=== PATIENT | male | born 1970 | race Caucasian/White ===

== ENCOUNTER 2016-09-14 13:12 | Outpatient (CLI) | payer MEDICARE, OTHER | END 2016-09-14 13:13 | disposition home or self-care (01) | LOC: SC 13:12 | PROVIDERS: ATTEND Nurse Practitioner Family | DX: G47.33 Obstructive sleep apnea (adult) (pediatric) (principal) | CPT/HCPCS: 99213; G0463; 99212 ==

== ENCOUNTER 2017-10-31 12:46 | Day surgery (SDC) | payer OTHER ==
[2017-10-31] MEDS ORDERED: LACTATED RINGERS 1,000 ML IV ONE (13:20)
--- NOTE | 2017-10-31 13:35 | ANESTHESIA ---
Pre-Anesthesia VS, & Labs - Diagnosis Anemia, bloody diarrhea - Procedure Esophagogastrodenoscopy Vital Signs: Temp Pulse Resp BP Pulse Ox 36.7 C 65 16 136/97 H 97 10/31/17 12:55 10/31/17 12:55 10/31/17 12:55 10/31/17 12:55 10/31/17 12:55 Vital Signs Temp 36.8 C 10/31/17 17:00 Pulse 70 10/31/17 17:00 Resp 16 10/31/17 17:00 BP 119/82 H 10/31/17 17:00 Pulse Ox 99 10/31/17 17:00 Height 5 ft 10 in Weight (kg) 112.9 kg Body Mass Index 29.9 - NPO >8 hours - Lab Results Lab results reviewed: Yes Home Medications and Allergies Home Medications: Ambulatory Orders Medication Instructions Recorded Confirmed RX: Carvedilol 12.5 mg PO BID 03/08/13 10/03/17 Cetirizine [ZyrTEC] 10 mg PO DAILY PRN 03/12/13 10/03/17 Calcium Crb,Cit/D3/Min34/Shana 2 tab PO BID 10/16/13 10/03/17 [Citracal + Bone Density Tablet] RX: Multivitamin [Daily Multiple 1 tab PO DAILY 10/16/13 10/03/17 Vitamin] Magnesium Oxide [Magnesium] 400 mg ORAL DAILY 11/13/13 10/03/17 Loperamide [Imodium] 2 mg PO QID PRN 02/22/14 10/03/17 Pravastatin [Pravachol] 20 mg PO DAILY 05/31/16 10/03/17 Allergies/Adverse Reactions: Allergies Allergy/AdvReac Type Severity Reaction Status Date / Time No Known Drug Allergies Allergy Verified 02/21/14 14:33 Anes History & Medical History - Anesthetic History Anesthesia Complications: reports: No previous complications Family history of Anesthesia Complications: Denies Family history of Malignant Hyperthermia: Denies - Medical History Cardiovascular: reports: Hypertension Pulmonary: reports: Sleep apnea, CPAP use Gastrointestinal: reports: Chronic diarrhea, Hemorrhoids Urinary: reports: None Neuro: reports: None Musculoskeletal: reports: None Endocrine/Autoimmune: reports: None Blood Disorders: reports: Anemia Skin: reports: None Smoking Status: Never smoker Psychosocial: reports: No issues indicated - Surgical History General: Colonoscopy Orthopedic: Arthroscopic surgery Exam General: Alert Dental: WNL Mouth Opening: Greater than 4 Fingerbreadths Neck Mobility: Normal Mallampati classification: II Thyromental Distance: greater than 6 cm Respiratory: Lungs clear Cardiovascular: Regular rate Neurological: Normal speech Mental/Cognitive Status: Alert/Oriented X3 Cognitive Status: Within normal limits Plan Anesthesia Type: MAC Consent for Procedure(s) Verified and Reviewed: Yes Code Status: Attempt Resuscitation ASA classification: 2-Mild systemic disease Is this case an emergency?: No
[2017-10-31] MEDS ORDERED: LIDO GARGLE 30 ML BOTTLE ONE (13:51)
[2017-10-31] MEDS ORDERED: fentaNYL 250 MCG/5 ML VIAL IVP ONE (15:21)
[2017-10-31] MEDS ORDERED: MIDAZOLAM 2 MG/2 ML VIAL IVP ONE (15:21)
[2017-10-31] MEDS ORDERED: LIDO GARGLE 30 ML BOTTLE TOP ONE (15:25)
[2017-10-31 18:17] VITALS: BP 119/82
== END 2017-10-31 12:47 | disposition home or self-care (01) ==
LOC: SDS 12:46
PROVIDERS: ATTEND Surgery
PROC: 0DBP8ZX Excision of Rectum, Via Natural or Artificial Opening Endoscopic, Diagnostic (ICD-10-PCS; 2017-10-31)
PROC: 0DB98ZX Excision of Duodenum, Via Natural or Artificial Opening Endoscopic, Diagnostic (ICD-10-PCS; 2017-10-31)
PROC: 0DB78ZX Excision of Stomach, Pylorus, Via Natural or Artificial Opening Endoscopic, Diagnostic (ICD-10-PCS; 2017-10-31)
PROC: 0DBH8ZX Excision of Cecum, Via Natural or Artificial Opening Endoscopic, Diagnostic (ICD-10-PCS; principal; 2017-10-31 13:45)
PROC: 0DBN8ZX Excision of Sigmoid Colon, Via Natural or Artificial Opening Endoscopic, Diagnostic (ICD-10-PCS; 2017-10-31 13:45)
DX: D64.9 Anemia, unspecified (principal); R19.7 Diarrhea, unspecified; K62.5 Hemorrhage of anus and rectum; Z94.84 Stem cells transplant status; G47.33 Obstructive sleep apnea (adult) (pediatric); C85.90 Non-Hodgkin lymphoma, unspecified, unspecified site; Z87.891 Personal history of nicotine dependence; K21.9 Gastro-esophageal reflux disease without esophagitis; I11.0 Hypertensive heart disease with heart failure; I50.9 Heart failure, unspecified
CPT/HCPCS: 43239; 45380; 87081; A9270; J3010; J7120

== ENCOUNTER 2018-09-22 12:39 | Day surgery (SDC) | payer OTHER ==
[~2018-09-22 12:39] MED LIST: CEFAZOLIN SODIUM IN 0.9 % NACL 2 GM/100 ML BAG IV ONE
[2018-09-22] MEDS ORDERED: fentaNYL 100 MCG/2 ML VIAL IVP ONE (12:40)
[2018-09-22] MEDS ORDERED: PROPOFOL 200 MG/20 ML VIAL IVP ONE (12:40)
[2018-09-22] MEDS ORDERED: DEXAMETHASONE 4 MG/ML VIAL IVP ONE (12:40)
[2018-09-22] MEDS ORDERED: MIDAZOLAM 2 MG/2 ML VIAL IVP ONE (12:40)
[2018-09-22] MEDS ORDERED: LIDOCAINE-MPF 2% 5 ML VIAL IM ONE (12:40)
--- NOTE | 2018-09-22 13:08 | ANESTHESIA ---
Pre-Anesthesia VS, & Labs - Diagnosis hemachromatosis - Procedure portacath placement Vital Signs: Temp Pulse Resp BP Pulse Ox 36.4 C L 72 17 134/93 H 97 09/22/18 12:52 09/22/18 12:52 09/22/18 12:52 09/22/18 12:52 09/22/18 12:52 Height 5 ft 10.5 in Weight (kg) 119.1 kg Body Mass Index 36.7 - NPO >8 hours Home Medications and Allergies Cetirizine [ZyrTEC] 10 mg PO DAILY PRN 03/12/13 Calcium Crb,Cit/D3/Min34/Shana [Citracal + Bone Density Tablet] 2 tab PO BID 10/16/13 Multivitamin [Daily Multiple Vitamin] 1 tab PO DAILY 10/16/13 Loperamide [Imodium] 2 mg PO QID PRN 02/22/14 Pravastatin [Pravachol] 20 mg PO DAILY 05/31/16 Allergies/Adverse Reactions: Allergies Allergy/AdvReac Type Severity Reaction Status Date / Time No Known Drug Allergies Allergy Verified 07/24/18 09:04 Anes History & Medical History - Anesthetic History Anesthesia Complications: reports: No previous complications Family history of Anesthesia Complications: Denies Family history of Malignant Hyperthermia: Denies - Medical History Cardiovascular: reports: Hypertension Pulmonary: reports: Sleep apnea, CPAP use Gastrointestinal: reports: Chronic diarrhea, Hemorrhoids Urinary: reports: None Musculoskeletal: reports: None Endocrine/Autoimmune: reports: None Blood Disorders: reports: Anemia Skin: reports: None Smoking Status: Never smoker - Surgical History General: Colonoscopy Orthopedic: Arthroscopic surgery Exam General: Alert, Oriented x3, Cooperative, No acute distress Dental: Other (caps) Mouth Openin Fingerbreadth Neck Mobility: Normal Mallampati classification: III Thyromental Distance: greater than 6 cm Respiratory: Lungs clear, Normal breath sounds, No respiratory distress, No accessory muscle use Cardiovascular: Regular rate, Normal S1, Normal S2, No murmurs Plan Anesthesia Type: General Consent for Procedure(s) Verified and Reviewed: Yes Code Status: Attempt Resuscitation ASA classification: 2-Mild systemic disease Is this case an emergency?: No
[2018-09-22] MEDS ORDERED: LACTATED RINGERS 1,000 ML IV ONE (13:11)
[2018-09-22] MEDS ORDERED: BUPIVACAINE 0.5% PF 10 ML VIAL ONE (14:00)
[2018-09-22] MEDS ORDERED: BUPIVACAINE 0.5% PF 30 ML VIAL SUBQ ONE ×2 (14:33)
--- NOTE | 2018-09-22 15:14 | XRAY Report ---
Reason: PORTACATH PLACEMENT Procedure Date: 09/22/2018 Accession Number: [id number] / [id number] Procedure: XR - Chest 1 View X-Ray CPT Code: 85551 FULL RESULT: EXAM: CHEST RADIOGRAPHY EXAM DATE: 09/22/2018 03:05 PM. CLINICAL HISTORY: Port-A-Cath placement. COMPARISON: CHEST 2 VIEW PA/LAT 05/30/2014 3:15 PM. TECHNIQUE: 1 view. FINDINGS: The radiograph is markedly limited by AP supine technique with apical lordotic angulation with exclusion of a portion of the right hemithorax and underpenetration. Within these limitations: Lungs/Pleura: Lung volumes are low and large portions of the lungs are obscured, visualized aerated portions are without consolidation. No pleural effusion or pneumothorax is detected. Mediastinum: As seen, marked cardiomegaly which is likely exacerbated by low lung volumes and technique. Other: Interval port revision with the distal tip in the region of the superior cavoatrial junction. IMPRESSION: Markedly limited radiograph with suggestion of cardiomegaly. RADIA
--- NOTE | 2018-09-22 15:16 | OPERATIVE REPORT ---
Operative Report - General Procedure Date: 09/22/18 Planned Procedure: Portacath placement Pre-Op Diagnosis: Hematochromatosis Procedure Performed: Portacath placement (LEFT subclavian vein) Post Op Diagnosis: Same - Procedure Note Primary Surgeon: Rolly Diana MD Anesthesia Provider: Nitin Ingram CRNA Anesthesia Technique: General LMA, Local (18 mL of half percent Marcaine) IV Fluids (mL): 400 Estimated Blood Loss (mL): 5 Drain/Tube Type: Other (None.) Complications: None. - Other Other Information/Narrative: OPERATIVE DESCRIPTION/REPORT: After verbal and written informed consent was obtained detailing the risks of infection, bleeding requiring transfusion with its risks, nerve injury, and , and after I met with the patient confirming the surgery and the site of the surgery, the patient was brought to the operative suite and placed supine on the operating table. Great care was taken to avoid pressure points to prevent pressure necrosis or nerve injury. Monitoring devices were applied along with TEDs and pneumatic compressive stockings (to prevent DVT). The patient received preoperative antibiotics for surgical prophylaxis. Nitin Ingram CRNA sedated and anesthetized the patient for the entire procedure. The patient was prepped and draped in the usual sterile manner. A "time in" then confirmed that the patient was identified with 3 identifiers (name, date and medical record number), the history and physical was in the chart, the signed consent confirming the procedure was in the chart, the patient was in the correct position, the aforementioned prophylactic measures were in place or given, we had the correct personnel and equipment to complete the procedure and that anesthesia, surgery and nursing were given an opportunity to express any concerns. With the agreement of everyone in the room, we proceeded with the operation. After the subclavian region was anesthetized using % marcaine and the patient placed in Trendelenberg position, an Angiodynamics Smartport kit (Catalog #[id number], Lot #[id number]) was opened. The finder needle was inserted into the subclavian vein taking great care to place it just under the clavicle in order to minimize the risk of pneumothorax. When good venous blood return was obtained, the wire was placed through the needle and into the vein without difficulty. Cardiac irritability confirmed that the catheter was correctly going down towards the heart. Below and lateral to the needle insertion site, the area was anesthetized again using % marcaine and a transverse incision was made just large enough to accommodate the port. This incision was taken down to the fascia using sharp dissection and the area for the port was created using blunt downward dissection. Meticulous hemostasis was obtained using Bovie electrocautery. A knife was inserted along the wire to widen the insertion site and this was further dilated using a Afua. The port was flushed with heparinized saline and placed in the pouch and the catheter was then passed to the needle opening using the passer. The catheter was then measured against the patients anterior chest and cut so that the tip would lie 2 cm below the manubrial-sternal junction. The port was secured to the fascia using a 3-0 Prolene on the side of the opening of the port. The catheter was then wiped and wrapped with a heparinized soaked 4x4. The dilator and sheath were then carefully inserted over the wire and the dilator and wire withdrawn. The catheter was then inserted into the sheath and the sheath was broken away from the catheter leaving the catheter in place in the vein. An X-ray confirmed placement of the catheter tip right subclavian vein. It was then noticed that the patient's right arm had not been tucked. The right arm was tucked against the patient's body and the needle insertion site was open to slightly in order to grasp the catheter which was withdrawn 4 cm. It was then reinserted, this time with the arm tucked and follow-up x-ray showed the catheter in the right atrium/supracardiac vena cava without pneumothorax. Using a Hueber needle the port was accessed and good blood return as well as easy flush was noted. The subcutaneous tissue was approximated using 3-0 Vicryl and the skin incisions were approximated with 4-0 Monocryl in a subcuticular fashion. The skin prep was washed off and Dermabond was applied. At this point a time out was performed that confirmed that all the counts were correct, the procedure that was performed, the blood loss, the IV fluids administered, and the patients condition. A dressing was placed on the wound. Having tolerated the procedure well, the patient was taken to short stay in good and stable condition. The patient was instructed that the Portacath could be used immediately. [employer] disclaimer: This document was created in part using voice recognition technology. Because of the inherent limitations of the system ([employer]'s Dragon Dictate user manual states that the licensee understands that speech recognition is a statistical process and that recognition errors are inherent in the process), occasional same sounding word substitutions and grammatical errors do occur and persist despite proofreading. Please read this document for context.
[2018-09-22] MEDS: fentaNYL 100 MCG/2 ML VIAL ONE ×2 (15:36→15:41)
[2018-09-22] MEDS ORDERED: HYDROmorphone 0.5 MG/0.5 ML SYRINGE IVP PRN (16:04)
[2018-09-22] MEDS ORDERED: ONDANSETRON 4 MG/2 ML VIAL IVP PRN (16:04)
[2018-09-22] MEDS ORDERED: HYDROcod/ACETAM 5/325 MG TABLET PO PRN (16:04)
[2018-09-22 16:20] VITALS: BP 145/103
== END 2018-09-22 12:40 | disposition home or self-care (01) ==
LOC: SDS 12:39
PROVIDERS: ATTEND Surgery
PROC: 02HV33Z Insertion of Infusion Device into Superior Vena Cava, Percutaneous Approach (ICD-10-PCS; principal; 2018-09-22 14:45)
DX: E83.119 Hemochromatosis, unspecified (principal); G47.33 Obstructive sleep apnea (adult) (pediatric); C85.90 Non-Hodgkin lymphoma, unspecified, unspecified site; I11.0 Hypertensive heart disease with heart failure; I50.9 Heart failure, unspecified; Z86.711 Personal history of pulmonary embolism; Z87.891 Personal history of nicotine dependence; E66.9 Obesity, unspecified; Z68.36 Body mass index [BMI] 36.0-36.9, adult
CPT/HCPCS: 36561; 71045; C1788; J0690; J7120

== ENCOUNTER 2018-11-14 16:02 | Outpatient (CLI) | payer OTHER ==
[2018-11-14 17:18] VITALS: BP 132/80
--- NOTE | 2018-11-14 17:18 | SLEEP CARE CONSULTATION ---
Information from patient questionnaire entered by Karely Noel. I have reviewed and concur with the information entered by Karely Noel. This document represents the service I personally performed and the decisions made by me, Brenda Bran, RN, MSN, BIOLOGY RESEARCH ASSISTANT. History of Present Illness Previous diagnosis: Very Severe, Obstructive Sleep Apnea-Hypopnea Syndrome AHI: 82.6 Reason for CPAP/BiPAP follow up: annual Equipment type: CPAP Equipment obtained from: [facility] (He is having problems with getting supplies and would like to transfer.) Mask style: Nasal (Dreamwear) Mask brand: Respironics Backup mask available: Yes Last cushion change: a couple of months due to difficulty getting supplies Prior sleep studies: Yes Year and Where: 2012 [facility] CPAP Compliance Data - Data Reviewed with Patient Average duration of nightly device use: 7h 36m Compliance rate %: 98.3 Current pressure setting (cmH2O): 6 Humidity setting: off Average residual AHI: 2.7 Subjective Patient concerns: denies: aerophagia, mask discomfort, air blowing in eyes, mask leak noise, condensation in mask/hose, nasal congestion, dry mouth, nose, throat, epistaxis Observed to snore while using device: No Current pressure setting perceived as: comfortable On therapy, patient: reports: sleeping better (cant sleep without CPAP), awakening more refreshed, being more awake and alert during the day, more rested overall. denies: drowsiness while driving Initial [place] Sleepiness Scale score: 17 Current [place] Sleepiness Scale score: 12 Allergies and Home Medications Known drug allergies: No Home medication list reviewed: Yes Allergy and home medication list: MEDICATIONS: Carvedilol 12.5mg bid Pravastatin 25mg HS Citracal 4 tablets Zyrtec p.o. daily Flaxseed oil 2 capsules. multivitamin with no iron B complex Physical Exam Blood Pressure: 132/80 Cuff size: long Heart Rate: 72 O2 Saturation: 98 Height: 5 ft 11 in Weight: 267 lb Body Mass Index: 37.2 BMI Classification: Obesity Class 2 Impression and Plan 1. Obstructive Sleep Apnea-Hypopnea Syndrome, very severe, with good treatment compliance and good apnea control. On CPAP therapy, the patient has better sleep quality and is more rested overall. However, he has intermittent that he feels is due to irregular sleep schedule. He was advised to strive for a regular wake time and to go to bed about 15-16 hours later to allow for 7-8 hours of sleep with rationale discussed. . Do not go to bed unless sleepy. Since his CPAP is over 5 years old, I informed him that he could update. He declined at this time. He was informed if it starts getting noisier or shutting off, to notify me so his CPAP can be updated. As for his supplies, I can make a DWO for transfer. My staff will inform of his options for his insurance. Patient's apnea severity and rationale for treatment to reduce apnea, improve sleep quality and reduce cardiovascular and cerebrovascular events was reviewed. I also reviewed the benefit of consistent device use of CPAP for hypertension. Since he has gained weight, I informed him how continued weight gain will increase his apnea and CPAP pressure requirements as well as overall health risks. He is advised to lose weight and agreed. As he loses weight, his pressure requirements can lessen and symptoms to report discussed. I also reviewed battery and invertor options for CPAP use while camping. He is to check the Respironics web site for current options for his device. * * Continue CPAP pressure at 6 cmH2O * Transfer of care. * Notify me if snoring with mask or feeling that the pressure is too much or too little * Attempt to lose weight * Return for follow up in 1 year , or sooner if concerns arise I spent 100% of this [15][30] minute visit face to face with the patient with gr eater than 50% of this was spent time counseling the patient and coordination of care.
== END 2018-11-14 16:03 | disposition home or self-care (01) ==
LOC: SC 16:02
PROVIDERS: ATTEND Nurse Practitioner Family
DX: G47.33 Obstructive sleep apnea (adult) (pediatric) (principal)
CPT/HCPCS: 99212; 99214

== ENCOUNTER 2022-02-04 13:37 | Outpatient (CLI) | payer OTHER ==
[2022-02-04 14:19] VITALS: BP 138/90
--- NOTE | 2022-02-04 14:19 | SLEEP CARE CONSULTATION ---
Information from patient questionnaire entered by Cooper Contreras. I have reviewed and concur with the information entered by Cooper Contreras. This document represents the service I personally performed and the decisions made by me, Lacie Solomon ARNP. History of Present Illness Service Date and Time: 02/04/2022 1337 Reason for Visit: Previously diagnosed sleep apnea, sleep apnea on CPAP therapy, Re-establish care Chief Complaint: reports: Other (update supplies) Date of Onset: 12+ years Usual bedtime: 11-12 Time it takes to fall asleep: 5-10 min Snores at night: Yes (not on cpap) Observed to quit breathing while asleep: Yes Sleeps alone due to snoring: No Number of times waking at night: 1-2 times Reasons for waking at night: reports: Bathroom. denies: Choking, Snoring, Gasping for air Toss, Turn, or Twitch while sleeping: No Recalls having dreams: Yes Usually gets out of bed at: 7-730 Feels refreshed in the morning: Yes Morning headache: No Sleepy or fatigued during the day: Yes Ever fallen asleep while driving: Yes Takes day naps: Yes Dreams during day naps: Yes Prior sleep studies: Yes Year and Where: 2012 [facility] Additional HPI information: AKIL ALFONSO was previously diagnosed to have very severe, AHI 82.6, obstructive sleep apnea-hypopnea syndrome and comes in today to re-establish care for CPAP therapy. - Parasomnia Symptoms Ever been unable to move upon waking from sleep: No Walks in sleep: No Talks in sleep: No Ever acted out dreams in sleep: No Ever felt weak in the knees when startled or emotional: No Bothered by creepy, crawly, restless sensations in legs: No Problems with memory or concentration: No CPAP Compliance Data - Data Reviewed with Patient Average duration of nightly device use: 7 hours 44 minutes Compliance rate %: 100 (30/30 days used) Current pressure setting (cmH2O): 6 Average residual AHI: 4.4 Central apnea: 0.6 Obstructive apnea: 1.5 Hypopnea: 2.3 Average large leak: 30 secs Compliance data discussion: He has a RemStar Pro by [employer] that he received in 2012. He is using a nasal cushion Dreamwear mask. He is getting his supplies from [employer]. They are the ones who recommended he come in to get new device since his is on the Alfredo recall. He denies any black debris in his machine. He changes his cushion regular and has a back up mask in case of need. Subjective Patient concerns: denies: aerophagia, mask discomfort, air blowing in eyes, mask leak noise, condensation in mask/hose, nasal congestion, dry mouth, nose, throat, epistaxis Observed to snore while using device: No Current pressure setting perceived as: comfortable On therapy, patient: reports: sleeping better, awakening more refreshed, being more awake and alert during the day, more rested overall. 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 Patient is and lives in [place]. Have you smoked in the past 12 months: No Cigarettes per day (20/pack): 2 Years of smokin Quit date: 2007 Smoking Pack Years: 1.0 Alcohol use: Yes Alcohol amount and frequency: 2-3 occasionally Caffeine use: Yes Caffeine amount and frequency: 2-3 cans daily Family History Family history of sleep disordered breathing: Yes Family Hx Sleep Apnea: Mother: Sleep apnea - Treated, Sibling: Sleep apnea - Treated Allergies and Home Medications Known drug allergies: No Drug allergies reviewed: Yes (NKDA) Home medication list reviewed: Yes Allergy and home medication list: Medications: Carvedilol 12.5 mg daily HCTZ 25 mg daily Lisinopril 20 mg daily Duloxetine 60 mg daily Pravastatin 20 mg daily Review of Systems Weight loss over past 5 years: 10 Cardiovascular: reports: high blood pressure Respiratory: denies: shortness of breath Gastrointestinal: denies: heartburn Neurological: denies: headaches Psychiatric: denies: anxiety, depression Ear/Nose/Throat: reports: wisdom teeth removed. denies: tonsillectomy Endocrine: denies: thyroid disease Immunologic: reports: allergies to food or environment Physical Exam Vital signs obtained and entered by: CODY FRANCISCO Blood Pressure: 138/90 (left arm ) Cuff size: regular Heart Rate: 88 O2 Saturation: 98 Height: 5 ft 10 in Weight: 255 lb Body Mass Index: 36.6 BMI Classification: Obese Neck circumference: 20 (inches) Heart: regular rate and rhythm Lungs: clear bilaterally Impression and Plan 1. Obstructive Sleep Apnea-Hypopnea Syndrome, very severe, with good treatment compliance and good apnea control. On CPAP therapy, the patient has better sleep quality and is more rested overall. The patients CPAP is over 5 years old and of reasonable use. [In addition, it is starting to make louder noise, a sign of malfunction. ]Thus, the CPAP will be updated. [The new CPAPs also have a better humidity system which could assist control of patients dryness symptoms. ]A DWO prescription will be made. Compliance guidelines for new device and follow up discussed. Patient's apnea severity and rationale for treatment to reduce apnea, improve sleep quality and reduce cardiovascular and cerebrovascular events was reviewed. I also reviewed the benefit of consistent device use of CPAP for hypertension. 2. Obesity, unspecified. Currently patients BMI is 36.6. Obesity increases the risk of apnea, CPAP pressure requirements and overall health risks especially cardiovascular and diabetes. Thus patient is advised to lose weight. * Continue CPAP pressure at 6 cmH2O * Update machine * Update supplies * Notify me if snoring with mask or feeling that the pressure is too much or too little * Attempt to lose weight * Call this office if any problems using CPAP * Return for follow up one month after obtaining new device, or sooner if concerns arise Counseling Topics: Spare mask, Weight loss health impact Prescriptions: CPAP, Device supplies Visit Type: In Office Time Spent with Patient (minutes): 30 Provider Statement: I spent 100% of the Face to Face Visit with the patient with greater than 50% spent counseling the patient and coordination of care.
== END 2022-02-04 13:38 | disposition home or self-care (01) ==
LOC: SC 13:37
PROVIDERS: ATTEND Nurse Practitioner Family
DX: G47.33 Obstructive sleep apnea (adult) (pediatric) (principal); E66.9 Obesity, unspecified; Z68.36 Body mass index [BMI] 36.0-36.9, adult; Z87.891 Personal history of nicotine dependence
CPT/HCPCS: 99203; 99212

== ENCOUNTER 2023-06-21 16:45 | Outpatient (CLI) | payer OTHER ==
[2023-06-21 20:58] LABS: BASOPHILS # (AUTO) 0.1 10^3/uL (0.0-0.1); BASOPHILS % (AUTO) 0.7 %; EOSINOPHILS # (AUTO) 0.1 10^3/uL (0.0-0.7); EOSINOPHILS % (AUTO) 0.9 %; HCT - HEMATOCRIT 43.8 % (42.0-52.0); HGB - HEMOGLOBIN 14.5 g/dL (14.0-18.0); LYMPHOCYTES % (AUTO) 37.3 %; MEAN CORPUSCULAR HEMOGLOBIN 31.3 pg (27.0-31.0); MEAN CORPUSCULAR HGB CONC 33.1 g/dL (32.0-36.0); MEAN CORPUSCULAR VOLUME 94.6 fL (80.0-94.0); MEAN PLATELET VOLUME 10.3 fL (7.4-11.4); MONOCYTES # (AUTO) 1.2 10^3/uL (0.0-1.0); MONOCYTES % (AUTO) 11.2 %; NEUTROPHILS # (AUTO) 5.3 10^3/uL (1.5-6.6); NEUTROPHILS % (AUTO) 49.6 %; PLT - PLATELET COUNT 270 10^3/uL (130-450); RED BLOOD COUNT 4.63 10^6/uL (4.70-6.10); RED CELL DISTRIBUTION WIDTH 13.8 % (12.0-15.0); WHITE BLOOD COUNT 10.8 x10^3/uL (4.8-10.8)
[2023-06-21 21:14] LABS: BILIRUBIN,URINE NEGATIVE (NEGATIVE); GLUCOSE, URINE (UA) NEGATIVE (NEGATIVE); KETONES,URINE (UA) NEGATIVE (NEGATIVE); LEUKOCYTE ESTERASE, URINE NEGATIVE (NEGATIVE); NITRITE,URINE NEGATIVE (NEGATIVE); OCCULT BLOOD,URINE MODERATE (NEGATIVE); PROTEIN,URINE NEGATIVE (NEGATIVE); UROBILINOGEN,URINE 0.2 (NORMAL) E.U./dL (NORMAL)
[2023-06-21 21:20] LABS: ALBUMIN 4.3 g/dL (3.2-5.5); ALBUMIN/GLOBULIN RATIO 1.6 (1.0-2.2); BILIRUBIN,TOTAL 0.6 mg/dL (0.2-1.0); CALCIUM 9.6 mg/dL (8.5-10.3); CREATININE 1.2 mg/dL (0.6-1.3); POTASSIUM 4.1 mmol/L (3.5-4.5)
[2023-06-21 21:24] LABS: BACTERIA,URINE None Seen /HPF (None Seen); CLARITY,URINE CLEAR (CLEAR); SQUAMOUS EPITHELIAL CELL,UR RARE Squamous (<= Few); WBC,URINE 0-3 /HPF (0-3)
== END 2023-06-21 17:00 | disposition home or self-care (01) ==
LOC: LAB.N 16:45
PROVIDERS: ATTEND Family Medicine
DX: R31.0 Gross hematuria (principal)
CPT/HCPCS: 36415; 80053; 81001; 85025